=== PATIENT | female | born 1975 | race Native Hawaiian/Other Pacific Islander ===

== ENCOUNTER 2018-03-28 18:12 | Emergency (ER) | payer OTHER ==
[~2018-03-28] VITALS: Ht 160 cm; Wt 54.4 kg
[2018-03-28 20:23] LABS: PLATELET COUNT 282 K/uL (152-353)
[2018-03-28 20:32] LABS: POTASSIUM 3.4 mmol/L (3.6-5.2)
[2018-03-28 21:41] VITALS: BP 134/86; TEMP 99
== END 2018-03-28 21:43 | disposition home or self-care (01) ==
LOC: ED 18:12
DX: R05 Cough (principal)
CPT/HCPCS: 36415; 80053; 81000; 85027; 94664; 99283

== ENCOUNTER 2019-03-07 15:25 | Outpatient (CLI) | payer OTHER | END 2019-03-07 21:49 | disposition home or self-care (01) | LOC: MAMMO 15:25 | DX: Z12.31 Encounter for screening mammogram for malignant neoplasm of breast (principal) ==

== ENCOUNTER 2020-06-15 12:58 | Outpatient (CLI) | payer OTHER | END 2020-06-15 19:06 | disposition home or self-care (01) | LOC: US 12:58 | DX: R10.2 Pelvic and perineal pain (principal); N92.3 Ovulation bleeding ==

== ENCOUNTER 2020-06-28 15:52 | Emergency (ER) | payer OTHER ==
[~2020-06-28] VITALS: Ht 160 cm; Wt 64.4 kg
[2020-06-28 16:33] LABS: PLATELET COUNT 292 K/uL (152-353)
[2020-06-28 16:41] LABS: POTASSIUM 3.8 mmol/L (3.6-5.2)
[2020-06-28 19:45] VITALS: BP 123/81; TEMP 98.6
== END 2020-06-28 19:45 | disposition home or self-care (01) ==
LOC: ED 15:52
PROVIDERS: Hospitalist
DX: R10.32 Left lower quadrant pain (principal); K59.09 Other constipation
CPT/HCPCS: 36415; 80053; 81000; 81025; 82150; 83690; 85027; 96374; 96375; 99284; J1885; J2405; Q9963

== ENCOUNTER 2022-06-02 11:38 | Outpatient (CLI) | payer OTHER | END 2022-06-02 19:31 | disposition home or self-care (01) | LOC: MAMMO 11:38 | PROVIDERS: ATTEND Internal Medicine | DX: Z12.31 Encounter for screening mammogram for malignant neoplasm of breast (principal) ==

== ENCOUNTER 2022-12-25 12:20 | Emergency (ER) | payer OTHER ==
[~2022-12-25] VITALS: Ht 160 cm; Wt 63.5 kg
[2022-12-25 12:37] VITALS: TEMP 97
[2022-12-25 13:11] LABS: PLATELET COUNT 217 K/uL (152-353)
[2022-12-25 13:19] LABS: POTASSIUM 3.6 mmol/L (3.6-5.2)
[2022-12-25 16:11] VITALS: BP 133/96
== END 2022-12-25 16:14 | disposition home or self-care (01) ==
LOC: ED 12:20
PROVIDERS: Emergency Medicine Emergency Medical Services
DX: K52.9 Noninfective gastroenteritis and colitis, unspecified (principal); J10.1 Influenza due to other identified influenza virus with other respiratory manifestations
CPT/HCPCS: 36415; 80053; 81000; 81025; 83735; 85027; 87502; 87635; 96361; 96374; 99284; J1885; Q9963; U0001